=== PATIENT | male | born 1945 | race Caucasian/White ===

== ENCOUNTER 2018-03-30 07:25 | Emergency (ER) | payer MEDICARE ==
[~2018-03-30] VITALS: Ht 172.7 cm; Wt 74.8 kg
[~2018-03-30 07:25] MED LIST: AMIO200 PO; ATOR10 PO; INSULANPEN SC; LEVE500 PO; METO50 PO; NAPR550 PO; OMEP20ER; OMEPRAZOLE MAGN20 MG PO; OXYACE5T PO; SILD50TA PO; TERA5 PO; UNKNOWN BP MED
[2018-03-30] MEDS ORDERED: LOSA25 PO (07:43)
[2018-03-30] MEDS ORDERED: METO25ER PO (07:43)
[2018-03-30] MEDS ORDERED: Metformin HCl1000 MG PO (07:44)
[2018-03-30 07:57] LABS: BASOPHILS ABSOLUTE AUTO 0.03 K/mm3 (0.00-0.23); BASOPHILS PERCENT AUTO 0 % (0-2); EOSINOPHILS ABSOLUTE AUTO 0.25 K/mm3 (0.00-0.68); EOSINOPHILS PERCENT AUTO 3 % (0-6); Hematocrit 38.7 % (37.0-53.0); Hemoglobin 13.4 g/dL (13.5-17.5); IMMATURE GRAN ABSOLUTE AUTO 0.04 K/mm3 (0.00-0.10); IMMATURE GRAN PERCENT AUTO 1 % (0-1); LYMPHOCYTES ABSOLUTE AUTO 1.75 K/mm3 (0.84-5.20); LYMPHOCYTES PERCENT AUTO 21 % (21-46); MONOCYTES ABSOLUTE AUTO 0.62 K/mm3 (0.16-1.47); MONOCYTES PERCENT AUTO 7 % (4-13); Mean Corpuscular HGB 29.6 pg (26.0-34.0); Mean Corpuscular HGB Conc 34.6 g/dL (31.5-36.5); Mean Corpuscular Volume 86 fL (80-100); Mean Platelet Volume 9.8 fL (9.1-12.4); NEUTROPHILS ABSOLUTE AUTO 5.84 K/mm3 (1.96-9.15); NEUTROPHILS PERCENT AUTO 68 % (41-73); Platelet Count 261 K/mm3 (150-400); RDW Standard Deviation 37.3 fL (35.1-46.3); Red Blood Cell Count 4.52 M/mm3 (4.30-5.90); White Blood Cell Count 8.53 K/mm3 (4.00-11.30)
[2018-03-30 08:10] LABS: Alanine Aminotransfer (ALT/SGP 28 U/L (12-78); Albumin, Blood 3.4 g/dL (3.4-5.0); Alk Phos 67 U/L (50-136); Anion Gap 7 mmol/L (6-16); Aspartate Aminotrans (AST/SGOT 17 U/L (12-37); Bilirubin, Total 0.6 mg/dL (0.1-1.0); Blood Urea Nitrogen 16 mg/dL (8-24); Bun/Creatinine Ratio 15.4 (12.0-20.0); CO2, Blood 27 mmol/L (21-32); Calcium, Blood 8.6 mg/dL (8.5-10.1); Chloride, Blood 106 mmol/L (98-108); Creatinine, Blood 1.04 mg/dL (0.60-1.20); Globulin, Blood 3.5 g/dL (2.2-4.0); Glomerular Filtration Rate >60 (60-); Glucose, Blood 223 mg/dL (70-99); Potassium, Blood 4.6 mmol/L (3.5-5.5); Sodium, Blood 140 mmol/L (136-145); Total Protein, Blood 6.9 g/dL (6.4-8.2)
[2018-03-30 08:16] LABS: Source, Urine Clean Catch
[2018-03-30 08:32] LABS: Troponin I <0.015 ng/mL (0.000-0.040)
[2018-03-30 08:49] LABS: Bilirubin, Urine Neg (Neg); Blood, Urine Neg (Neg); Glucose Qualitative, Urine 3+ (Neg); Ketones, Urine Neg (Neg); Leukocyte Esterase, Urine Neg (Neg); Nitrite, Urine Neg (Neg); Protein, Urine Neg (Neg); Specific Gravity, Urine 1.005 (1.003-1.022); Urobilinogen, Urine NORM (Normal)
[2018-03-30 09:08] LABS: Appearance, Urine Clear (Clear); Color, Urine Yellow (P-Yellow)
[2018-03-31] MEDS ORDERED: ASPI81CH PO (13:54)
[2018-04-01] MEDS ORDERED: INSULANPEN (17:25)
== END 2018-03-30 11:35 | disposition home or self-care (01) ==
LOC: ER 07:25
PROVIDERS: Emergency Medicine
DX: R42 Dizziness and giddiness (principal); R55 Syncope and collapse; I25.10 Atherosclerotic heart disease of native coronary artery without angina pectoris; I48.91 Unspecified atrial fibrillation; I10 Essential (primary) hypertension; E11.9 Type 2 diabetes mellitus without complications; Z79.899 Other long term (current) drug therapy; Z79.4 Long term (current) use of insulin
CPT/HCPCS: 36415; 80053; 81003; 84443; 84484; 85025; 93005; 93010; 93225; 93226; 99284-25

== ENCOUNTER 2020-03-23 12:25 | Observation (INO) | payer MEDICARE ==
[~2020-03-23] VITALS: Ht 172.7 cm; Wt 77.6 kg
[~2020-03-23 12:25] MED LIST changes: +INSULANPEN; +LOSA25 PO; +Lisinopril2.5 MG PO; +METO25ER PO; -OMEPRAZOLE MAGN20 MG PO
[2020-03-23 12:53] LABS: BASOPHILS ABSOLUTE AUTO 0.02 K/mm3 (0.00-0.23); BASOPHILS PERCENT AUTO 0 % (0-2); EOSINOPHILS ABSOLUTE AUTO 0.19 K/mm3 (0.00-0.68); EOSINOPHILS PERCENT AUTO 3 % (0-6); Hematocrit 37.5 % (37.0-53.0); Hemoglobin 12.6 g/dL (13.5-17.5); IMMATURE GRAN ABSOLUTE AUTO 0.02 K/mm3 (0.00-0.10); IMMATURE GRAN PERCENT AUTO 0 % (0-1); LYMPHOCYTES ABSOLUTE AUTO 1.29 K/mm3 (0.84-5.20); LYMPHOCYTES PERCENT AUTO 23 % (21-46); MONOCYTES ABSOLUTE AUTO 0.46 K/mm3 (0.16-1.47); MONOCYTES PERCENT AUTO 8 % (4-13); Mean Corpuscular HGB 30.1 pg (26.0-34.0); Mean Corpuscular HGB Conc 33.6 g/dL (31.5-36.5); Mean Corpuscular Volume 90 fL (80-100); Mean Platelet Volume 10.1 fL (9.1-12.4); NEUTROPHILS ABSOLUTE AUTO 3.54 K/mm3 (1.96-9.15); NEUTROPHILS PERCENT AUTO 64 % (41-73); Platelet Count 234 K/mm3 (150-400); RDW Coefficient Variation 12.7 % (11.7-14.2); RDW Standard Deviation 41.5 fL (35.1-46.3); Red Blood Cell Count 4.18 M/mm3 (4.30-5.90); White Blood Cell Count 5.52 K/mm3 (4.00-11.30)
[2020-03-23 13:22] LABS: Alanine Aminotransfer (ALT/SGP 44 U/L (12-78); Albumin, Blood 3.7 g/dL (3.4-5.0); Albumin/Globulin Ratio 1.1 (0.8-1.8); Alk Phos 57 U/L (50-136); Anion Gap 4 mmol/L (6-16); Aspartate Aminotrans (AST/SGOT 33 U/L (12-37); Bilirubin, Total 0.5 mg/dL (0.1-1.0); Blood Urea Nitrogen 18 mg/dL (8-24); Bun/Creatinine Ratio 16.4 (12.0-20.0); CO2, Blood 27 mmol/L (21-32); Calcium, Blood 8.7 mg/dL (8.5-10.1); Chloride, Blood 106 mmol/L (98-108); Globulin, Blood 3.3 g/dL (2.2-4.0); Glomerular Filtration Rate >60 (60-); Glucose, Blood 104 mg/dL (70-99); Potassium, Blood 4.6 mmol/L (3.5-5.5); Sodium, Blood 137 mmol/L (136-145); Troponin I 0.066 ng/mL (0.000-0.040)
[2020-03-23] MEDS ORDERED: VICTOZA 2-0.6 MG/0.1 SC (15:29)
[2020-03-23] MEDS ORDERED: OMEPRAZOLE MAGN20 MG PO (15:31)
[2020-03-23] MEDS ORDERED: METF500 PO (15:31)
[2020-03-23] MEDS ORDERED: FINA5 PO (15:31)
[2020-03-23] MEDS ORDERED: IRBESARTAN75 MG PO (15:31)
[2020-03-23] MEDS ORDERED: LIVALO1 MG PO (15:32)
[2020-03-23] MEDS ORDERED: TERA5 PO (15:32)
[2020-03-23] MEDS ORDERED: NEURONTIN300 MG PO (15:32)
[2020-03-23] MEDS ORDERED: Aspir 8181 MG PO (15:43)
--- NOTE | 2020-03-23 17:33 | NUR ---
echocardiogram complete
[2020-03-24 01:59] LABS: Alanine Aminotransfer (ALT/SGP 34 U/L (12-78); Albumin, Blood 3.2 g/dL (3.4-5.0); Albumin/Globulin Ratio 1.1 (0.8-1.8); Alk Phos 52 U/L (50-136); Anion Gap 4 mmol/L (6-16); Aspartate Aminotrans (AST/SGOT 24 U/L (12-37); Bilirubin, Total 0.4 mg/dL (0.1-1.0); Blood Urea Nitrogen 16 mg/dL (8-24); Bun/Creatinine Ratio 15.7 (12.0-20.0); CO2, Blood 27 mmol/L (21-32); Calcium, Blood 8.5 mg/dL (8.5-10.1); Chloride, Blood 112 mmol/L (98-108); Creatinine, Blood 1.02 mg/dL (0.60-1.20); Glomerular Filtration Rate >60 (60-); Glucose, Blood 118 mg/dL (70-99); Potassium, Blood 4.3 mmol/L (3.5-5.5); Sodium, Blood 143 mmol/L (136-145); Total Protein, Blood 6.2 g/dL (6.4-8.2)
[2020-03-24 02:02] LABS: BASOPHILS ABSOLUTE AUTO 0.02 K/mm3 (0.00-0.23); BASOPHILS PERCENT AUTO 1 % (0-2); EOSINOPHILS ABSOLUTE AUTO 0.22 K/mm3 (0.00-0.68); EOSINOPHILS PERCENT AUTO 5 % (0-6); Hematocrit 36.3 % (37.0-53.0); Hemoglobin 12.3 g/dL (13.5-17.5); IMMATURE GRAN ABSOLUTE AUTO 0.02 K/mm3 (0.00-0.10); IMMATURE GRAN PERCENT AUTO 1 % (0-1); LYMPHOCYTES ABSOLUTE AUTO 1.12 K/mm3 (0.84-5.20); LYMPHOCYTES PERCENT AUTO 27 % (21-46); MONOCYTES PERCENT AUTO 12 % (4-13); Mean Corpuscular HGB 30.2 pg (26.0-34.0); Mean Corpuscular HGB Conc 33.9 g/dL (31.5-36.5); Mean Corpuscular Volume 89 fL (80-100); NEUTROPHILS PERCENT AUTO 55 % (41-73); Platelet Count 224 K/mm3 (150-400); RDW Coefficient Variation 12.7 % (11.7-14.2); RDW Standard Deviation 41.2 fL (35.1-46.3); Red Blood Cell Count 4.07 M/mm3 (4.30-5.90); White Blood Cell Count 4.18 K/mm3 (4.00-11.30)
--- NOTE | 2020-03-24 07:25 | NUR ---
SHIFT SUMMARY: PATIENT SLEPT ALL NIGHT. NO COMPLAINTS OF CHEST PAIN OR SOB. PATIENT C/O NASAL CONGESTION; PT'S. IS BRINGING NASAL SPRAY FROM HOME. VSS. PATIENT VOIDING ADEQUATE AMOUNTS CLEAR, YELLOW URINE. IV WITH NS INFUSING AT 125CC/HR. AWAITING CARDIOLOGY CONSULT THIS AM. REPORT GIVEN TO ONCOMING SHIFT.
--- NOTE | 2020-03-24 19:27 | NUR ---
SHIFT SUMMARY PT IS ALERT AND ORIENTED X4. NO REPORTS OF CHEST PAIN TODAY, TELEMETRY HAS SHOWN PT IN SINUS RHYTHM, VITALS HAVE BEEN STABLE. 1ST PART OF LEXISCAN STARTED TODAY, 2ND PORTION TO BE COMPLETED TOMORROW. NPO AFTER MIDNIGHT. PT AWARE OF PLAN OF CARE AND AGREES.
[2020-03-25 03:55] LABS: BASOPHILS ABSOLUTE AUTO 0.02 K/mm3 (0.00-0.23); BASOPHILS PERCENT AUTO 0 % (0-2); EOSINOPHILS ABSOLUTE AUTO 0.24 K/mm3 (0.00-0.68); EOSINOPHILS PERCENT AUTO 5 % (0-6); Hematocrit 38.7 % (37.0-53.0); IMMATURE GRAN ABSOLUTE AUTO 0.02 K/mm3 (0.00-0.10); IMMATURE GRAN PERCENT AUTO 0 % (0-1); LYMPHOCYTES ABSOLUTE AUTO 1.27 K/mm3 (0.84-5.20); LYMPHOCYTES PERCENT AUTO 24 % (21-46); MONOCYTES ABSOLUTE AUTO 0.64 K/mm3 (0.16-1.47); MONOCYTES PERCENT AUTO 12 % (4-13); Mean Corpuscular HGB Conc 33.6 g/dL (31.5-36.5); Mean Corpuscular Volume 89 fL (80-100); Mean Platelet Volume 9.9 fL (9.1-12.4); NEUTROPHILS ABSOLUTE AUTO 3.02 K/mm3 (1.96-9.15); NEUTROPHILS PERCENT AUTO 58 % (41-73); Platelet Count 207 K/mm3 (150-400); RDW Coefficient Variation 12.6 % (11.7-14.2); RDW Standard Deviation 41.3 fL (35.1-46.3); Red Blood Cell Count 4.33 M/mm3 (4.30-5.90); White Blood Cell Count 5.21 K/mm3 (4.00-11.30)
[2020-03-25 04:17] LABS: Anion Gap 3 mmol/L (6-16); Blood Urea Nitrogen 19 mg/dL (8-24); Bun/Creatinine Ratio 17.8 (12.0-20.0); CO2, Blood 28 mmol/L (21-32); Calcium, Blood 8.7 mg/dL (8.5-10.1); Chloride, Blood 107 mmol/L (98-108); Creatinine, Blood 1.07 mg/dL (0.60-1.20); Glomerular Filtration Rate >60 (60-); Glucose, Blood 136 mg/dL (70-99); Potassium, Blood 4.2 mmol/L (3.5-5.5); Sodium, Blood 138 mmol/L (136-145)
--- NOTE | 2020-03-25 06:28 | NUR ---
patient came in due to new chest pain while doing activity. Patient appears to have an NSTEMI and will be further evaluated today with a Allyson scan cardiac stress test. No acute events overnight no complaints of chest pain, chest pressure, or any other cardio pulmonary symptoms.
--- NOTE | 2020-03-25 09:34 | NUR ---
ASSUME CARE: PT ALERT AND ORIENTED VITALS HRR SINUS 70-80'S WITH BBB, DENIES CHEST PAIN AT THIS TIME 2ND PART OF LEXISCAN SCHEDULED FOR TODAY, PT REMAINED NPO. CURRENTLY HAD A SHOWER THIS AM, NO OTHER ISSUES ENCOUNTERED FOR THE SHIFT, PT PLEASANT AND COOPERATIVE. WILL MONITOR
[2020-03-25] MEDS ORDERED: NITR.4SL SL (15:49)
--- NOTE | 2020-03-25 16:16 | NUR ---
PT DISCHARGED TO HOME TODAY, LEXISCAN TEST RESULT CAME BACK NORMAL. CELLOPHANER OKAY TO DISCHARGE PT. PT TO FOLLOW UP WITH PCP AND CELLOPHANER IN 1-2 WEEKS. PT TO START TAKING NITROGLYCERIN FOR CHEST PAIN, PT DISCHARGE MEDICATION AND INSTRUCTION DISCLOSED WITH PT AND . PT VERBALIZED UNDERSTANDING. ALL BELONGINGS AND HOME MEDS SENT WITH PT. PT ACCOMPANIED BY [facility] FOR TRANSPORT.
== END 2020-03-25 16:33 | disposition home or self-care (01) ==
LOC: ER 12:25 → PCU 12:26 → ER 15:33 → PCU 18:21
PROVIDERS: Emergency Medicine; ADMIT Family Medicine
DX: I24.9 Acute ischemic heart disease, unspecified (principal); I25.10 Atherosclerotic heart disease of native coronary artery without angina pectoris; E11.42 Type 2 diabetes mellitus with diabetic polyneuropathy; E11.51 Type 2 diabetes mellitus with diabetic peripheral angiopathy without gangrene; I11.0 Hypertensive heart disease with heart failure; I50.30 Unspecified diastolic (congestive) heart failure; E78.00 Pure hypercholesterolemia, unspecified; K21.9 Gastro-esophageal reflux disease without esophagitis; E78.5 Hyperlipidemia, unspecified; Z87.891 Personal history of nicotine dependence; D64.9 Anemia, unspecified; Z79.82 Long term (current) use of aspirin; Z79.899 Other long term (current) drug therapy; Z79.4 Long term (current) use of insulin; Z95.1 Presence of aortocoronary bypass graft; G47.33 Obstructive sleep apnea (adult) (pediatric); M54.32 Sciatica, left side; Z88.8 Allergy status to other drugs, medicaments and biological substances
CPT/HCPCS: 36415; 71046; 78452; 80048; 80053; 82947; 83880; 84484; 85025; 85379; 93005; 93010; 93017; 93306; 96360-59; 96361; 96361-59; 96372-59; 96374; 96375; 99285-25; A9270-GY; A9500; G0378; J0280; J1650; J2785; J7030

== ENCOUNTER → 2020-12-20 | Outpatient (CLI) | payer MEDICARE ==
[~2020-12-20] MED LIST changes: +Aspir 8181 MG PO; +CILO100 PO; +FINA5 PO; +IRBESARTAN75 MG PO; +LIVALO1 MG PO; +METF500 PO; +NEURONTIN300 MG PO; +NITR.4SL SL; +OMEPRAZOLE MAGN20 MG PO; +PREGABALIN75 MG PO; +ROSUVASTATIN CAL5 MG PO; +VICTOZA 2-0.6 MG/0.1 SC
[2020-12-20 13:18] LABS: BASOPHILS ABSOLUTE AUTO 0.02 K/mm3 (0.00-0.23); BASOPHILS PERCENT AUTO 0 % (0-2); EOSINOPHILS ABSOLUTE AUTO 0.21 K/mm3 (0.00-0.68); EOSINOPHILS PERCENT AUTO 3 % (0-6); Hemoglobin 13.9 g/dL (13.5-17.5); IMMATURE GRAN ABSOLUTE AUTO 0.02 K/mm3 (0.00-0.10); IMMATURE GRAN PERCENT AUTO 0 % (0-1); LYMPHOCYTES ABSOLUTE AUTO 1.12 K/mm3 (0.84-5.20); LYMPHOCYTES PERCENT AUTO 18 % (21-46); MONOCYTES ABSOLUTE AUTO 0.54 K/mm3 (0.16-1.47); MONOCYTES PERCENT AUTO 9 % (4-13); Mean Corpuscular HGB Conc 33.9 g/dL (31.5-36.5); Mean Corpuscular Volume 88 fL (80-100); NEUTROPHILS ABSOLUTE AUTO 4.45 K/mm3 (1.96-9.15); NEUTROPHILS PERCENT AUTO 70 % (41-73); RDW Coefficient Variation 13.4 % (11.7-14.2); RDW Standard Deviation 42.9 fL (35.1-46.3); Red Blood Cell Count 4.64 M/mm3 (4.30-5.90); White Blood Cell Count 6.36 K/mm3 (4.00-11.30)
[2020-12-20 13:42] LABS: Albumin, Blood 3.7 g/dL (3.4-5.0); Bilirubin, Total 0.5 mg/dL (0.1-1.0); Bun/Creatinine Ratio 16.9 (12.0-20.0); Calcium, Blood 8.9 mg/dL (8.5-10.1); Creatinine, Blood 1.18 mg/dL (0.60-1.20); Globulin, Blood 3.7 g/dL (2.2-4.0); Thyroid Stimulating Hormone 1.638 uIU/mL (0.360-4.800); Total Protein, Blood 7.4 g/dL (6.4-8.2)
[2020-12-20 13:46] LABS: Mean Platelet Volume 10.1 fL (9.1-12.4); Platelet Count 254 K/mm3 (150-400)
== END | disposition home or self-care (01) ==
LOC: LAB SHORT 13:10
PROVIDERS: Physician Assistant
DX: E11.9 Type 2 diabetes mellitus without complications (principal); R10.9 Unspecified abdominal pain; R53.83 Other fatigue
CPT/HCPCS: 80053; 83036; 83690; 84443; 85025

== ENCOUNTER 2021-01-08 09:10 | Inpatient (IN) | payer MEDICARE ==
[~2021-01-08] VITALS: Ht 172.7 cm; Wt 73.8 kg
[~2021-01-08 09:10] MED LIST changes: +GLUCOPHAGE1000 M1 PO; -METF500 PO
[2021-01-08 11:10] LABS: BASOPHILS ABSOLUTE AUTO 0.01 K/mm3 (0.00-0.23); BASOPHILS PERCENT AUTO 0 % (0-2); EOSINOPHILS ABSOLUTE AUTO 0.13 K/mm3 (0.00-0.68); EOSINOPHILS PERCENT AUTO 2 % (0-6); Hematocrit 39.8 % (37.0-53.0); Hemoglobin 13.4 g/dL (13.5-17.5); IMMATURE GRAN ABSOLUTE AUTO 0.04 K/mm3 (0.00-0.10); IMMATURE GRAN PERCENT AUTO 1 % (0-1); LYMPHOCYTES ABSOLUTE AUTO 1.24 K/mm3 (0.84-5.20); LYMPHOCYTES PERCENT AUTO 16 % (21-46); MONOCYTES ABSOLUTE AUTO 0.74 K/mm3 (0.16-1.47); MONOCYTES PERCENT AUTO 10 % (4-13); Mean Corpuscular HGB 30.1 pg (26.0-34.0); Mean Corpuscular HGB Conc 33.7 g/dL (31.5-36.5); Mean Corpuscular Volume 89 fL (80-100); Mean Platelet Volume 9.9 fL (9.1-12.4); NEUTROPHILS ABSOLUTE AUTO 5.57 K/mm3 (1.96-9.15); NEUTROPHILS PERCENT AUTO 72 % (41-73); Platelet Count 287 K/mm3 (150-400); RDW Coefficient Variation 12.5 % (11.7-14.2); RDW Standard Deviation 40.8 fL (35.1-46.3); Red Blood Cell Count 4.45 M/mm3 (4.30-5.90); White Blood Cell Count 7.73 K/mm3 (4.00-11.30)
[2021-01-08 11:26] LABS: Alanine Aminotransfer (ALT/SGP 25 U/L (12-78); Albumin, Blood 3.7 g/dL (3.4-5.0); Alk Phos 68 U/L (50-136); Anion Gap 8 mmol/L (6-16); Aspartate Aminotrans (AST/SGOT 17 U/L (12-37); Bilirubin, Total 0.7 mg/dL (0.1-1.0); Blood Urea Nitrogen 15 mg/dL (8-24); Bun/Creatinine Ratio 15.4 (12.0-20.0); CO2, Blood 25 mmol/L (21-32); Calcium, Blood 8.9 mg/dL (8.5-10.1); Chloride, Blood 101 mmol/L (98-108); Creatinine, Blood 0.97 mg/dL (0.60-1.20); Globulin, Blood 3.8 g/dL (2.2-4.0); Glomerular Filtration Rate >60 (60-); Glucose, Blood 317 mg/dL (70-99); Potassium, Blood 4.3 mmol/L (3.5-5.5); Sodium, Blood 134 mmol/L (136-145); Total Protein, Blood 7.5 g/dL (6.4-8.2)
[2021-01-08 11:45] LABS: International Normalized Ratio 0.98; Prothrombin Time Results 10.6 Sec (9.7-11.5)
--- NOTE | 2021-01-08 16:16 | NUR ---
NOTIFIED PATIENT ON MONITOR AND AFIB 90'S. DOES NOT LOOK LIKE HE HAS BEEN IN AFIB BEFORE. TO ADD MEDS.
--- NOTE | 2021-01-08 17:55 | NUR ---
Echocardiogram performed.
--- NOTE | 2021-01-08 18:06 | NUR ---
ARRIVES FROM E.R. AROUND 1530. STANDS PIVOTS TO BED. HEPARIN INFUSING AT 21.9 ML/HR TO LEFT A/C. CAME IN FOR PAIN TO GROIN AND DX W/CLOT FROM TOES TO HIP. TO DO INTERVENTION TOMORROW W/PATIENT AWARE NPO AFTER MIDNITE. PER CHART HX; AFIB WITH PATIENT STATING UNAWARE HE HAS AFIB. PER TELE AFIB UNDER 100. UNLABORED RESPIRATIONS. HAS DENIED NEED FOR PAIN STATES PAIN ABOUT 2(1-10). USES URINAL AT BEDSIDE WITH MINIMAL ASSIST. COOPERATIVE. PLEASANT. WCTM
--- NOTE | 2021-01-08 20:38 | NUR ---
HEPARIN GTT INCREASED TO 17 UN/KG/HR (24.8 ML/HR).
--- NOTE | 2021-01-09 | NUR ---
NPO FOR PROCEDURE ON 01/09/21.
--- NOTE | 2021-01-09 05:45 | NUR ---
HEPARIN GTT INCREASED TO 18 UN/KG/HR (26.3 ML/HR).
--- NOTE | 2021-01-09 06:13 | NUR ---
SUMMARY: A/OX4, CALLS APPROPRIATELY AND PLEASANT/COOPERATIVE W/CARE. HEPARIN GTT BEING MANAGED PER PHARMACY AND RATE INCREASED X2 TONIGHT, NOW RUNNING AT 18 UN/KG/HR (26.3 ML/HR). HE'S BEEN NPO SINCE MD FOR PROCEDURE ON SFA OCCLUSION TODAY. HE REMAINS NSR W/BBB AND 80'S BPM PER TELEMETRY W/KNOWN HX OF AFIB COMMENCED ON METOPROLOL. PT C/O R.LEG GROIN PAIN R/T OCCLUSION W/LYRICA EFFECTIVE AT RELIEVING IT. HE USED URINAL AT EOB AND IS SBA FOR DISTANCE. CAROTID DUPLEX COMPLETED THIS SHIFT, RESULTS PENDING. NO ACUTE CHANGES, VSS/AFEBRILE. PT SLEPT MAJORITY OF NOCTE W/O COMPLAINTS. WCTM AND REPORT TO DAY RN.
--- NOTE | 2021-01-09 08:38 | NUR ---
OK TO WAIT ON MRI PER TILL AFTER INTERVENTION
--- NOTE | 2021-01-09 10:02 | NUR ---
ADMIT:01/08/21 DISCHARGE: DX: Acute arterial occlusion CC: kwilcox SANDRINE CALL: RESIDENCE: Home with spouse CAREGIVER: Elvie Arshad, Spouse / Partner, DX: HTN, CKD-stage 3, CAD, hyperlipidemia, DM-type 2, see list DME: DM supplies, compression stockings CCM: Referral- 2017 & 2019 HOME HEALTH: none SUMMARY: Admit: 01/08/21 01/09/21- per chart review with Dr. Moore, pt is scheduled to have procedure with Abril today. No d/c plan at this time. -tiki
--- NOTE | 2021-01-09 12:31 | NUR ---
ADMIT:01/08/21 DISCHARGE: DX: Acute arterial occlusion CC: kwilcox SANDRINE CALL: RESIDENCE: Home with spouse CAREGIVER: Elvei Arshad, Spouse / Partner, DX: HTN, CKD-stage 3, CAD, hyperlipidemia, DM-type 2, see list DME: DM supplies, compression stockings CCM: Referral- 2017 & 2019 HOME HEALTH: none SUMMARY: Admit: 01/08/21 01/09/21- per chart review with Dr. Moore, pt is scheduled to have procedure with Dr. Samuels on SFA occlusion today. No d/c plan at this time. -tiki
--- NOTE | 2021-01-09 14:37 | NUR ---
ALERT. ORIENTED. [facility]G BALLOON PLACEMENT. HAS NOT REQUESTED ANY PAIN MEDS. USES URINAL AT BEDSIDE. HAS BEEN NPO SINCE MIDNITE. TELE ON AT THIS TIME.
--- NOTE | 2021-01-09 16:55 | NUR ---
REPORT GIVEN TO LOLA RN PCU. ANSWER ALL QUESTIONS.
--- NOTE | 2021-01-09 20:00 | NUR ---
PT ARRIVED AT 1620; BEDSIDE PROCEDURE UPDATES GIVEN BY CARDIAC NURSE AT BEDSIDE; PT ASSIGNED TO TELEMETRY; AND PT'S AT BEDSIDE; PT EDUCATED ON ACTIVITY RESTRICTION, DIET, EXERCISE, AND DISEASE PROCESS; REPORT OBTAINED AT 1651 VIA PHONE FROM MAEVE RAGLAND; PT REPORTED 8/10 PAIN IN R LEG AND RECEIVED ANALGESIA PER MAR; PT AND HIS DENY ADDITIONAL CONCERNS AT THIS TIME
--- NOTE | 2021-01-10 00:57 | NUR ---
CARE ASSUMPTION. PT A/O X4. VSS. SPO2 >90% ON RA. TELE NSR BBB 70S. L GROIN ACCESS SITE HAS NO BLEEDING, REDDNESS, OR HEMATOMA. PT TOLERATED HOB ELEVATED TO 30 DEGREE AND NO CHANGES AT ACCESS SITES. PT REPORTS BACK PAIN. PT RECEIVED PAIN MEDICATION PER EMAR. WILL CONTINUE TO MONITOR AND PROVIDE CARE.
[2021-01-10 04:07] LABS: BASOPHILS ABSOLUTE AUTO 0.01 K/mm3 (0.00-0.23); BASOPHILS PERCENT AUTO 0 % (0-2); EOSINOPHILS ABSOLUTE AUTO 0.14 K/mm3 (0.00-0.68); EOSINOPHILS PERCENT AUTO 2 % (0-6); Hematocrit 37.5 % (37.0-53.0); Hemoglobin 12.5 g/dL (13.5-17.5); IMMATURE GRAN ABSOLUTE AUTO 0.02 K/mm3 (0.00-0.10); IMMATURE GRAN PERCENT AUTO 0 % (0-1); LYMPHOCYTES ABSOLUTE AUTO 1.17 K/mm3 (0.84-5.20); LYMPHOCYTES PERCENT AUTO 19 % (21-46); MONOCYTES PERCENT AUTO 12 % (4-13); Mean Corpuscular HGB 29.3 pg (26.0-34.0); Mean Corpuscular HGB Conc 33.3 g/dL (31.5-36.5); Mean Corpuscular Volume 88 fL (80-100); Mean Platelet Volume 9.5 fL (9.1-12.4); NEUTROPHILS ABSOLUTE AUTO 4.04 K/mm3 (1.96-9.15); NEUTROPHILS PERCENT AUTO 67 % (41-73); Platelet Count 244 K/mm3 (150-400); RDW Coefficient Variation 12.5 % (11.7-14.2); RDW Standard Deviation 39.6 fL (35.1-46.3); Red Blood Cell Count 4.26 M/mm3 (4.30-5.90); White Blood Cell Count 6.08 K/mm3 (4.00-11.30)
[2021-01-10 04:23] LABS: Albumin, Blood 3.1 g/dL (3.4-5.0); Anion Gap 6 mmol/L (6-16); Blood Urea Nitrogen 15 mg/dL (8-24); Bun/Creatinine Ratio 14.9 (12.0-20.0); CO2, Blood 27 mmol/L (21-32); Calcium, Blood 8.2 mg/dL (8.5-10.1); Chloride, Blood 101 mmol/L (98-108); Creatinine, Blood 1.01 mg/dL (0.60-1.20); Glomerular Filtration Rate >60 (60-); Glucose, Blood 142 mg/dL (70-99); Phosphorus, Blood 3.5 mg/dL (2.5-4.9); Sodium, Blood 134 mmol/L (136-145)
--- NOTE | 2021-01-10 05:05 | NUR ---
SHIFT SUMMARY PT A/O X4. VSS. SPO2 >90% ON RA. TELE SR BBB 70S. L GROIN ACCESS SITE HAS NO BLEEDING, REDDNESS, OR HEMATOMA. PT STATES SITE IS TENDER. PT TOLERATED HOB TO 35 DEGREE. PT REPORTS BACK PAIN 10/10. PT RECEIVED PAIN MED PER EMAR ORDER UPON REASSESSMENT PT STATES REPORTS PAIN 5/10. WILL CONTINUE TO MONITOR AND PROVIDE CARE UNTIL HAND OFF WITH DAY SHIFT.
--- NOTE | 2021-01-10 14:28 | NUR ---
01/10/21- per chart review with Dr. Moore, pt is stable to d/c home today. Was not able to meet with pt prior to d/c. -tiki
--- NOTE | 2021-01-10 17:45 | NUR ---
PT EDUCATED ABOUT LIFESTYLE AND DIET CHANGES; VERBALIZES UNDERSTANDING; DISCHARGE ORDERS PROCESSED; PT'S IV REMOVED AT 1326; PT DRESSED IN STREET CLOTHES; PT'S AT BEDSIDE; DISCHARGE MATERIALS DISCUSSED WITH BOTH PARTIES AT THE BEDSIDE; PT AND DENY ADDITIONAL CONCERNS AT THIS TIME; PT TRANSFERRED OFF UNIT WITH PERSONAL EFFECTS, , AND NO MONITOR, INFUSIONS, OR OXYGEN VIA WHEELCHAIR.
== END 2021-01-10 14:06 | disposition home or self-care (01) | DRG 271 ==
LOC: ER 09:10 → MEDS 09:11 → PCU 15:16 → MEDS 15:17 → PCU 01-09 16:10 → ENPENDDIS 01-10 09:07 → PCU 01-10 14:06
PROVIDERS: Emergency Medicine; Pharmacist; ADMIT Hospitalist
PROC: 047M3Z1 Dilation of Right Popliteal Artery using Drug-Coated Balloon, Percutaneous Approach (ICD-10-PCS; principal; 2021-01-09)
PROC: 04CK3ZZ Extirpation of Matter from Right Femoral Artery, Percutaneous Approach (ICD-10-PCS; 2021-01-09)
PROC: 047K341 Dilation of Right Femoral Artery with Drug-eluting Intraluminal Device, using Drug-Coated Balloon, Percutaneous Approach (ICD-10-PCS; 2021-01-09)
PROC: B41DYZZ Fluoroscopy of Aorta and Bilateral Lower Extremity Arteries using Other Contrast (ICD-10-PCS; 2021-01-09)
DX: E11.51 Type 2 diabetes mellitus with diabetic peripheral angiopathy without gangrene (principal); E87.1 Hypo-osmolality and hyponatremia; I70.201 Unspecified atherosclerosis of native arteries of extremities, right leg; N18.30 Chronic kidney disease, stage 3 unspecified; G89.29 Other chronic pain; M54.5 Low back pain; M50.11 Cervical disc disorder with radiculopathy, high cervical region; N40.0 Benign prostatic hyperplasia without lower urinary tract symptoms; I12.9 Hypertensive chronic kidney disease with stage 1 through stage 4 chronic kidney disease, or unspecified chronic kidney disease; K21.9 Gastro-esophageal reflux disease without esophagitis; E11.42 Type 2 diabetes mellitus with diabetic polyneuropathy; Z95.1 Presence of aortocoronary bypass graft; E78.5 Hyperlipidemia, unspecified; Z79.82 Long term (current) use of aspirin; Z79.899 Other long term (current) drug therapy; Z87.891 Personal history of nicotine dependence; E11.22 Type 2 diabetes mellitus with diabetic chronic kidney disease; I95.1 Orthostatic hypotension
CPT/HCPCS: 36415; 37227; 70551; 75625; 75716; 75774; 76937; 80053; 80069; 82947; 85025; 85347; 85610; 85730; 93306; 93880; 93926; 93971; 96365; 96366; 96376; 97116; 97161; 99152; 99153; 99285-25; A9270; C1714; C1725; C1760; C1769; C1874; C1884; C1887; C1894; C2623; J1644; J2250; J3010; J7030; J7050; Q9967

== ENCOUNTER → 2022-04-18 | Outpatient (CLI) | payer OTHER ==
[2022-04-19 13:25] LABS: Stool Occult Bld Immuno 1 Negative (NEGATIVE)
== END | disposition home or self-care (01) ==
LOC: LAB SHORT 07:15 → LAB 07:15
PROVIDERS: Hospitalist
DX: D64.9 Anemia, unspecified (principal)
CPT/HCPCS: 82274

== ENCOUNTER 2025-07-19 13:02 | Day surgery (SDC) | payer OTHER ==
[~2025-07-19] VITALS: Ht 172.7 cm; Wt 73.7 kg
[~2025-07-19 13:02] MED LIST changes: +Balanced Salt Epinephrine Irrigation Solution 500 mL IR SCH; +Moxifloxacin HCL 0.5 MG/0.1 ML 0.4MLSYR RIGHTEYE SCH; +Ondansetron 4 MG SoluTab MM PRN; +PHENYLEPHRINE\\TROPICAMIDE\\TETRACAINE OPHTHALMIC DILATING SOLN RIGHTEYE PRN; +Povidone-Iodine 450 DROP/30 ML Solution ONE; +Povidone-Iodine 450 DROP/30 ML Solution RIGHTEYE SCH; +Tetracaine HCl/Pf 0.5% Opth Soln 4 ml ONE; +diazePAM 5 MG,diazePAM 2 MG PO SCH
[2025-07-19] MEDS ORDERED: TRULICITY4.5 MG/0.5 SQ (13:52)
[2025-07-19] MEDS ORDERED: INSULANI (13:52)
[2025-07-19] MEDS ORDERED: GABA300 PO (13:53)
[2025-07-19] MEDS ORDERED: TIZA4 PO (13:53)
[2025-07-19] MEDS ORDERED: IRBESARTAN75 M1 PO (13:53)
--- NOTE | 2025-07-19 13:57 | NUR ---
07/19/25 1357 James Dong CALL LIGHT WITHIN REACH. EYE DROPS AROUND 1345. PT ON CONTINOUS PULSE OXIMETER FOR CLOSE MONITORING.
--- NOTE | 2025-07-19 14:34 | NUR ---
07/19/25 1434 Shakila Antonio 1430 BP:195/95 HR:76 O2:98% RESP:16
[2025-07-19 15:08] VITALS: BP 181/93
== END 2025-07-19 15:00 | disposition home or self-care (01) ==
LOC: ORSCSDS 13:02
PROVIDERS: Student in an Organized Health Care Education/Training Program
PROC: 08RJ3JZ Replacement of Right Lens with Synthetic Substitute, Percutaneous Approach (ICD-10-PCS; principal; 2025-07-19 14:30)
DX: H25.813 Combined forms of age-related cataract, bilateral (principal); H21.81 Floppy iris syndrome; N40.0 Benign prostatic hyperplasia without lower urinary tract symptoms; I25.10 Atherosclerotic heart disease of native coronary artery without angina pectoris; Z86.73 Personal history of transient ischemic attack (TIA), and cerebral infarction without residual deficits; I10 Essential (primary) hypertension; E78.5 Hyperlipidemia, unspecified; G47.33 Obstructive sleep apnea (adult) (pediatric); I48.0 Paroxysmal atrial fibrillation; I73.9 Peripheral vascular disease, unspecified; Z79.82 Long term (current) use of aspirin; Z79.84 Long term (current) use of oral hypoglycemic drugs; Z79.4 Long term (current) use of insulin; Z79.85 Long-term (current) use of injectable non-insulin antidiabetic drugs; Z79.899 Other long term (current) drug therapy; Z87.891 Personal history of nicotine dependence
CPT/HCPCS: A9270; J2003; V2632

== ENCOUNTER 2025-08-02 09:33 | Day surgery (SDC) | payer OTHER ==
[~2025-08-02] VITALS: Ht 172.7 cm; Wt 74.6 kg
[~2025-08-02 09:33] MED LIST changes: +GABA300 PO; +INSULANI; +IRBESARTAN75 M1 PO; +Moxifloxacin HCL 0.5 MG/0.1 ML 0.4MLSYR LEFTEYE SCH; -Moxifloxacin HCL 0.5 MG/0.1 ML 0.4MLSYR RIGHTEYE SCH; +PHENYLEPHRINE\\TROPICAMIDE\\TETRACAINE OPHTHALMIC DILATING SOLN LEFTEYE PRN; -PHENYLEPHRINE\\TROPICAMIDE\\TETRACAINE OPHTHALMIC DILATING SOLN RIGHTEYE PRN; +Povidone-Iodine 450 DROP/30 ML Solution LEFTEYE SCH; -Povidone-Iodine 450 DROP/30 ML Solution RIGHTEYE SCH; +TIZA4 PO; +TRULICITY4.5 MG/0.5 SQ
--- NOTE | 2025-08-02 09:54 | NUR ---
08/02/25 0954 Petra Garcia PT REPORTS ANXIETY LEVEL 0/10 PRIOR TO ADMINISTRATION OF VALIUM 7MG PO @ 9735
[2025-08-02] MEDS ORDERED: MAGNESIUM OXID500 MG PO (09:55)
--- NOTE | 2025-08-02 10:44 | NUR ---
08/02/25 1044 Marilin Mooney HR:74 RR:16 BP:159/90 SPO2:95% ON BLOW BY 02 10L
[2025-08-02 11:06] VITALS: BP 154/91
--- NOTE | 2025-08-02 11:11 | NUR ---
08/02/25 1111 RHODA ADAMES PT AT BEDSIDE.
== END 2025-08-02 11:22 | disposition home or self-care (01) ==
LOC: ORSCSDS 09:33
PROVIDERS: Student in an Organized Health Care Education/Training Program
PROC: 08RK3JZ Replacement of Left Lens with Synthetic Substitute, Percutaneous Approach (ICD-10-PCS; principal; 2025-08-02 11:00)
DX: E11.36 Type 2 diabetes mellitus with diabetic cataract (principal); H25.812 Combined forms of age-related cataract, left eye; Z96.1 Presence of intraocular lens; I25.10 Atherosclerotic heart disease of native coronary artery without angina pectoris; N40.0 Benign prostatic hyperplasia without lower urinary tract symptoms; Z86.73 Personal history of transient ischemic attack (TIA), and cerebral infarction without residual deficits; K21.9 Gastro-esophageal reflux disease without esophagitis; E78.5 Hyperlipidemia, unspecified; I10 Essential (primary) hypertension; G47.33 Obstructive sleep apnea (adult) (pediatric); I73.9 Peripheral vascular disease, unspecified; I48.0 Paroxysmal atrial fibrillation; Z79.82 Long term (current) use of aspirin; Z79.85 Long-term (current) use of injectable non-insulin antidiabetic drugs; Z79.4 Long term (current) use of insulin; Z79.84 Long term (current) use of oral hypoglycemic drugs; Z79.899 Other long term (current) drug therapy; Z87.891 Personal history of nicotine dependence
CPT/HCPCS: 93005; 93010; A9270; V2632